=== PATIENT | male | born 1965 | race Caucasian/White ===

== ENCOUNTER 2018-03-02 20:04 | Emergency (ER) | payer MEDICAID ==
[~2018-03-02] VITALS: Ht 175.3 cm; Wt 88.5 kg
[~2018-03-02 20:04] MED LIST: AZIT250 PO; CEPH500 PO; CYCL10 PO; Cleocin HCl150 MG PO; DIPATR PO; DOXY100 PO; HYDACE5 PO; HYDACE5325 PO; HYDCHL25 PO; HYDMOR2 PO; IBUP800 PO; K-Dur20 MEQ PO; Lasix20 MG PO; METPRE4DP PO; METR500 PO; Norco 5-325 Ta1 EACH PO; OXYACE7.5T PO; PENVK250 PO; RXHYD5325 PO; RXNEOPOLHC AD; Vancocin HCl250 MG PO
[2018-03-03] MEDS ORDERED: Zofran Odt4 MG SL (01:41)
[2018-03-03] MEDS ORDERED: Augmentin 500-1 EACH PO (01:41)
[2018-03-03] MEDS ORDERED: Norco 10-325 T1 EACH PO (01:41)
== END 2018-03-03 01:56 | disposition home or self-care (01) ==
LOC: ER 20:04
DX: S06.9X9A Unspecified intracranial injury with loss of consciousness of unspecified duration, initial encounter (principal); S00.12XA Contusion of left eyelid and periocular area, initial encounter; S00.11XA Contusion of right eyelid and periocular area, initial encounter; S01.531A Puncture wound without foreign body of lip, initial encounter; F17.210 Nicotine dependence, cigarettes, uncomplicated; Y04.2XXA Assault by strike against or bumped into by another person, initial encounter
CPT/HCPCS: 70450; 70486; 72125; 99284-25

== ENCOUNTER 2018-06-15 19:32 | Emergency (ER) | payer OTHER ==
[~2018-06-15] VITALS: Ht 175.3 cm; Wt 90.7 kg
[~2018-06-15 19:32] MED LIST changes: +Augmentin 500-1 EACH PO; +Norco 10-325 T1 EACH PO; +Zofran Odt4 MG SL
[2018-06-15] MEDS ORDERED: Crutch1 EACH MISC (21:15)
[2018-06-15] MEDS ORDERED: Percocet 5-3251 EACH PO (21:16)
== END 2018-06-15 21:28 | disposition home or self-care (01) ==
LOC: ER 19:32
DX: S92.421A Displaced fracture of distal phalanx of right great toe, initial encounter for closed fracture (principal); V86.96XA Unspecified occupant of dirt bike or motor/cross bike injured in nontraffic accident, initial encounter; F17.210 Nicotine dependence, cigarettes, uncomplicated
CPT/HCPCS: 73630; 99283-25

== ENCOUNTER 2018-07-06 19:25 | Emergency (ER) | payer OTHER ==
[~2018-07-06] VITALS: Ht 175.3 cm; Wt 86.2 kg
[~2018-07-06 19:25] MED LIST changes: +Crutch1 EACH MISC; +Percocet 5-3251 EACH PO
[2018-07-06 21:16] LABS: Source, Urine Clean Catch
[2018-07-06 21:18] LABS: Bilirubin, Urine Neg (Neg); Blood, Urine 3+ (Neg); Glucose Qualitative, Urine Neg (Neg); Ketones, Urine Neg (Neg); Leukocyte Esterase, Urine 3+ (Neg); Nitrite, Urine Neg (Neg); Protein, Urine 2+ (Neg); Urobilinogen, Urine 1+ (Normal); pH, Urine 6.5 (5.0-8.0)
[2018-07-06 21:23] LABS: Appearance, Urine Cloudy (Clear); Color, Urine Amber (P-Yellow)
[2018-07-06 21:24] LABS: Bacteria Many /hpf; Red Blood Cells, Urine 0-2 /hpf (0-2); Squamous Epithelial Cells Not Seen /hpf (Few); White Blood Cells, Urine TNTC /hpf (0-5)
[2018-07-06 22:30] LABS: Influenza A Negative (NEGATIVE); Influenza B Negative (NEGATIVE)
[2018-07-06] MEDS ORDERED: Cheratussin AC118 ML PO (22:49)
[2018-07-06] MEDS ORDERED: SINUS 12 HOUR120 MG PO (22:49)
[2018-07-09 03:11] LABS: CHLAMYDIA TRACHOMATIS, NAA Negative (Negative); NEISSERIA GONORRHOEAE, NAA Positive (Negative)
== END 2018-07-06 23:02 | disposition home or self-care (01) ==
LOC: ER 19:25
PROVIDERS: Physician Assistant
DX: N34.2 Other urethritis (principal); J06.9 Acute upper respiratory infection, unspecified; F17.210 Nicotine dependence, cigarettes, uncomplicated
CPT/HCPCS: 81001; 87086; 87491; 87591; 87804; 96372; 99283; J0696; J1100

== ENCOUNTER 2018-09-13 12:29 | Emergency (ER) | payer OTHER ==
[~2018-09-13] VITALS: Ht 175.3 cm; Wt 95.2 kg
[~2018-09-13 12:29] MED LIST changes: +Cheratussin AC118 ML PO; +SINUS 12 HOUR120 MG PO
== END 2018-09-13 12:33 ==
LOC: ER 12:29 → EDBD 12:29 → ER 12:33
DX: I46.9 Cardiac arrest, cause unspecified (principal)
CPT/HCPCS: 92950; 99285-25